=== PATIENT | male | born 1950 | race African-American/Black ===

== ENCOUNTER 2020-07-01 13:08 | Inpatient (IN) | payer OTHER ==
[2020-07-01] MEDS ORDERED: MAGNESIUM CITRATE 300 ML BOTTLE PO PRN (14:33)
[2020-07-01] MEDS ORDERED: IBUPROFEN 400 MG TABLET (FP) PO PRN (14:33)
[2020-07-01] MEDS ORDERED: ACETAMINOPHEN 325 MG TABLET (FP) PO PRN (14:33)
[2020-07-01] MEDS ORDERED: guaiFENesin 200 MG/10 ML 10 ML UNIT-DOSE CUPS PO PRN (14:33)
[2020-07-01] MEDS ORDERED: MAG HYDROX/AL HYDROX/SIMETH 30 ML UNIT-DOSE CUP PO PRN (14:33)
[2020-07-01] MEDS ORDERED: LOPERAMIDE HCL 2 MG CAPSULE PO PRN (14:33)
[2020-07-01] MEDS ORDERED: P-EPHED 60MG/TRIPROLIDI 2.5MG TABLET PO PRN (14:33)
[2020-07-01] MEDS ORDERED: MAGNESIUM HYDROX 2400MG/30ML ORAL SUSPENSION 30 ML CUP PO PRN (14:33)
[2020-07-01 15:37] VITALS: BMI 21.9
[2020-07-01] MEDS ORDERED: TUBERCULIN PPD 5 TU/0.1ML VIAL ID ONE (16:58)
[2020-07-01 17:30] LABS: HEMATOCRIT 41.2 % (35.4-49); HEMOGLOBIN 13.5 GM/dL (11.7-16.9); MCH 29.9 pg (25.7-33.7); MCHC 32.7 g/dl (32.0-35.9); MEAN CELL VOLUME 91.5 fl (80-96); MEAN PLT VOLUME 8.2 fl (7.5-11.1); PLATELET COUNT 276 K/MM3 (134-434); POTASSIUM 4.2 mmol/L (3.5-5.1); RBC 4.51 M/mm3 (4.00-5.60); RDW 15.3 % (11.9-15.9); WHITE BLOOD COUNT 5.7 K/mm3 (4.0-10.0)
[2020-07-01 17:32] LABS: CALCIUM 9.5 mg/dL (8.5-10.1)
[2020-07-01 17:33] LABS: ALBUMIN 3.5 g/dl (3.4-5.0); BLOOD UREA NITROGEN 20.5 mg/dL (7-18)
[2020-07-01 17:36] LABS: CREATININE 0.9 mg/dL (0.55-1.3)
[2020-07-01 17:38] LABS: BILIRUBIN,TOTAL 0.7 mg/dL (0.2-1); TOT PROT 6.9 g/dl (6.4-8.2)
[2020-07-01] MEDS: hydrOXYzine PAMOATE 25 MG CAPSULE (FP) PO SCH ×2 (18:35→21:45)
[2020-07-01 20:11] LABS: SICKLE CELL SCREEN NEGATIVE (NEGATIVE)
[2020-07-01] MEDS: MELATONIN 5 MG TABLETS PO SCH (21:44)
[2020-07-01] MEDS: ATORVASTATIN CA 20 MG TABLET (FP) PO SCH (21:45)
[2020-07-01] MEDS: THIAMINE HCL 100 MG TABLET (FP) PO SCH (21:45)
[2020-07-02] MEDS: hydrOXYzine PAMOATE 25 MG CAPSULE (FP) PO SCH ×4 (06:53→21:41)
[2020-07-02] MEDS: ASPIRIN 81 MG CHEWABLE TABLETS PO SCH (09:33)
[2020-07-02] MEDS: PANTOPRAZOLE 20 MG TABLET PO SCH (09:33)
[2020-07-02] MEDS: PRENATAL VITAMINS W/ FOLIC ACID TABLET (FP) PO SCH (09:33)
[2020-07-02 18:13] LABS: PH,URINE 6.5 (5.0-8.0); URINE APPEARANCE CLEAR; URINE BILIRUBIN NEGATIVE (NEGATIVE); URINE COLOR YELLOW; URINE GLUCOSE (UA) NEGATIVE (NEGATIVE); URINE KETONE NEGATIVE (NEGATIVE); URINE LEUK ESTERASE NEGATIVE (NEGATIVE); URINE NITRITE NEGATIVE (NEGATIVE); URINE PROTEIN NEGATIVE (NEGATIVE); URINE UROBILINOGEN 0.2 mg/dL (0.2-1.0)
[2020-07-02] MEDS: ATORVASTATIN CA 20 MG TABLET (FP) PO SCH (21:41)
[2020-07-02] MEDS: MELATONIN 5 MG TABLETS PO SCH (21:41)
[2020-07-02] MEDS: THIAMINE HCL 100 MG TABLET (FP) PO SCH (21:41)
[2020-07-03] MEDS: hydrOXYzine PAMOATE 25 MG CAPSULE (FP) PO SCH ×2 (06:29→09:30)
[2020-07-03] MEDS: ASPIRIN 81 MG CHEWABLE TABLETS PO SCH (09:29)
[2020-07-03] MEDS: PANTOPRAZOLE 20 MG TABLET PO SCH (09:29)
[2020-07-03] MEDS: PRENATAL VITAMINS W/ FOLIC ACID TABLET (FP) PO SCH (09:29)
[2020-07-03] MEDS: ATORVASTATIN CA 20 MG TABLET (FP) PO SCH (21:07)
[2020-07-03] MEDS: THIAMINE HCL 100 MG TABLET (FP) PO SCH (21:07)
[2020-07-03] MEDS: MELATONIN 5 MG TABLETS PO SCH (21:07)
[2020-07-04] MEDS: PRENATAL VITAMINS W/ FOLIC ACID TABLET (FP) PO SCH (09:57)
[2020-07-04] MEDS: ASPIRIN 81 MG CHEWABLE TABLETS PO SCH (09:57)
[2020-07-04] MEDS: PANTOPRAZOLE 20 MG TABLET PO SCH (09:57)
[2020-07-04] MEDS: ATORVASTATIN CA 20 MG TABLET (FP) PO SCH (21:44)
[2020-07-04] MEDS: MELATONIN 5 MG TABLETS PO SCH (21:44)
[2020-07-04] MEDS: THIAMINE HCL 100 MG TABLET (FP) PO SCH (21:44)
[2020-07-05] MEDS: PANTOPRAZOLE 20 MG TABLET PO SCH (09:18)
[2020-07-05] MEDS: ASPIRIN 81 MG CHEWABLE TABLETS PO SCH (09:18)
[2020-07-05] MEDS: PRENATAL VITAMINS W/ FOLIC ACID TABLET (FP) PO SCH (09:18)
[2020-07-05] MEDS: THIAMINE HCL 100 MG TABLET (FP) PO SCH (21:03)
[2020-07-05] MEDS: ATORVASTATIN CA 20 MG TABLET (FP) PO SCH (21:03)
[2020-07-05] MEDS: MELATONIN 5 MG TABLETS PO SCH (21:03)
[2020-07-06] MEDS: hydrOXYzine PAMOATE 25 MG CAPSULE (FP) PO PRN (10:02)
[2020-07-06] MEDS: ASPIRIN 81 MG CHEWABLE TABLETS PO SCH (10:02)
[2020-07-06] MEDS: PRENATAL VITAMINS W/ FOLIC ACID TABLET (FP) PO SCH (10:02)
[2020-07-06] MEDS: PANTOPRAZOLE 20 MG TABLET PO SCH (10:02)
[2020-07-06] MEDS: THIAMINE HCL 100 MG TABLET (FP) PO SCH (21:43)
[2020-07-06] MEDS: MELATONIN 5 MG TABLETS PO SCH (21:43)
[2020-07-06] MEDS: ATORVASTATIN CA 20 MG TABLET (FP) PO SCH (21:43)
[2020-07-07] MEDS: hydrOXYzine PAMOATE 25 MG CAPSULE (FP) PO PRN ×2 (06:19→21:03)
[2020-07-07] MEDS: PANTOPRAZOLE 20 MG TABLET PO SCH (09:17)
[2020-07-07] MEDS: ASPIRIN 81 MG CHEWABLE TABLETS PO SCH (09:17)
[2020-07-07] MEDS: PRENATAL VITAMINS W/ FOLIC ACID TABLET (FP) PO SCH (09:18)
[2020-07-07] MEDS: ERGOCALCIFEROL (VIT D2) 50,000 UNIT (1.25 MG) CAPSULE PO SCH (10:21)
[2020-07-07] MEDS: THIAMINE HCL 100 MG TABLET (FP) PO SCH (21:03)
[2020-07-07] MEDS: MELATONIN 5 MG TABLETS PO SCH (21:03)
[2020-07-07] MEDS: ATORVASTATIN CA 20 MG TABLET (FP) PO SCH (21:03)
[2020-07-08] MEDS: hydrOXYzine PAMOATE 25 MG CAPSULE (FP) PO PRN (06:28)
[2020-07-08] MEDS: PRENATAL VITAMINS W/ FOLIC ACID TABLET (FP) PO SCH (09:22)
[2020-07-08] MEDS: ASPIRIN 81 MG CHEWABLE TABLETS PO SCH (09:22)
[2020-07-08] MEDS: PANTOPRAZOLE 20 MG TABLET PO SCH (09:22)
[2020-07-08] MEDS: THIAMINE HCL 100 MG TABLET (FP) PO SCH (21:27)
[2020-07-08] MEDS: MELATONIN 5 MG TABLETS PO SCH (21:27)
[2020-07-08] MEDS: ATORVASTATIN CA 20 MG TABLET (FP) PO SCH (21:27)
[2020-07-09] MEDS: ASPIRIN 81 MG CHEWABLE TABLETS PO SCH (09:22)
[2020-07-09] MEDS: PANTOPRAZOLE 20 MG TABLET PO SCH (09:22)
[2020-07-09] MEDS: PRENATAL VITAMINS W/ FOLIC ACID TABLET (FP) PO SCH (09:22)
[2020-07-09] MEDS ORDERED: MASKS NR ONE (17:54)
[2020-07-09] MEDS: MELATONIN 5 MG TABLETS PO SCH (21:09)
[2020-07-09] MEDS: THIAMINE HCL 100 MG TABLET (FP) PO SCH (21:09)
[2020-07-09] MEDS: ATORVASTATIN CA 20 MG TABLET (FP) PO SCH (21:09)
[2020-07-10] MEDS: PRENATAL VITAMINS W/ FOLIC ACID TABLET (FP) PO SCH (09:33)
[2020-07-10] MEDS: PANTOPRAZOLE 20 MG TABLET PO SCH (09:33)
[2020-07-10] MEDS: ASPIRIN 81 MG CHEWABLE TABLETS PO SCH (09:33)
[2020-07-10] MEDS: THIAMINE HCL 100 MG TABLET (FP) PO SCH (22:13)
[2020-07-10] MEDS: MELATONIN 5 MG TABLETS PO SCH (22:13)
[2020-07-10] MEDS: ATORVASTATIN CA 20 MG TABLET (FP) PO SCH (22:13)
[2020-07-11] MEDS: PANTOPRAZOLE 20 MG TABLET PO SCH (09:29)
[2020-07-11] MEDS: PRENATAL VITAMINS W/ FOLIC ACID TABLET (FP) PO SCH (09:29)
[2020-07-11] MEDS: ASPIRIN 81 MG CHEWABLE TABLETS PO SCH (09:29)
[2020-07-11] MEDS: THIAMINE HCL 100 MG TABLET (FP) PO SCH (20:59)
[2020-07-11] MEDS: MELATONIN 5 MG TABLETS PO SCH (20:59)
[2020-07-11] MEDS: ATORVASTATIN CA 20 MG TABLET (FP) PO SCH (20:59)
[2020-07-12] MEDS: PANTOPRAZOLE 20 MG TABLET PO SCH (09:19)
[2020-07-12] MEDS: ASPIRIN 81 MG CHEWABLE TABLETS PO SCH (09:19)
[2020-07-12] MEDS: PRENATAL VITAMINS W/ FOLIC ACID TABLET (FP) PO SCH (09:19)
[2020-07-12] MEDS: THIAMINE HCL 100 MG TABLET (FP) PO SCH (21:52)
[2020-07-12] MEDS: ATORVASTATIN CA 20 MG TABLET (FP) PO SCH (21:52)
[2020-07-12] MEDS: MELATONIN 5 MG TABLETS PO SCH (21:52)
[2020-07-13] MEDS: PRENATAL VITAMINS W/ FOLIC ACID TABLET (FP) PO SCH (09:40)
[2020-07-13] MEDS: PANTOPRAZOLE 20 MG TABLET PO SCH (09:40)
[2020-07-13] MEDS: ASPIRIN 81 MG CHEWABLE TABLETS PO SCH (09:40)
[2020-07-13] MEDS: ATORVASTATIN CA 20 MG TABLET (FP) PO SCH (21:04)
[2020-07-13] MEDS: THIAMINE HCL 100 MG TABLET (FP) PO SCH (21:05)
[2020-07-13] MEDS: MELATONIN 5 MG TABLETS PO SCH (21:05)
[2020-07-14 06:52] VITALS: TEMP 98
[2020-07-14] MEDS: ASPIRIN 81 MG CHEWABLE TABLETS PO SCH (09:19)
[2020-07-14] MEDS: PRENATAL VITAMINS W/ FOLIC ACID TABLET (FP) PO SCH (09:19)
[2020-07-14] MEDS: PANTOPRAZOLE 20 MG TABLET PO SCH (09:20)
[2020-07-14] MEDS: ERGOCALCIFEROL (VIT D2) 50,000 UNIT (1.25 MG) CAPSULE PO SCH (11:20)
[2020-07-14] MEDS: MELATONIN 5 MG TABLETS PO SCH (22:00)
[2020-07-14] MEDS: ATORVASTATIN CA 20 MG TABLET (FP) PO SCH (22:00)
[2020-07-14] MEDS: THIAMINE HCL 100 MG TABLET (FP) PO SCH (22:00)
[2020-07-15 06:38] VITALS: BP 141/78; PULSE 64
[2020-07-15] MEDS: ASPIRIN 81 MG CHEWABLE TABLETS PO SCH (09:41)
[2020-07-15] MEDS: PRENATAL VITAMINS W/ FOLIC ACID TABLET (FP) PO SCH (09:41)
[2020-07-15] MEDS: PANTOPRAZOLE 20 MG TABLET PO SCH (09:42)
== END 2020-07-15 10:15 | disposition home or self-care (01) | DRG 895 ==
LOC: YASAS 13:08 → Y5N 15:48
PROVIDERS: ADMIT Allergy & Immunology; ATTEND Allergy & Immunology
PROC: HZ42ZZZ Group Counseling for Substance Abuse Treatment, Cognitive-Behavioral (ICD-10-PCS; principal; 2020-07-01)
DX: F10.20 Alcohol dependence, uncomplicated (principal); F14.20 Cocaine dependence, uncomplicated; I25.10 Atherosclerotic heart disease of native coronary artery without angina pectoris; I25.2 Old myocardial infarction; Z94.5 Skin transplant status; Z88.0 Allergy status to penicillin
CPT/HCPCS: 36415; 80053; 81003; 85027; 85660; 86780; 93005; 93010